=== PATIENT | male | born 1960 | race Caucasian/White ===

== ENCOUNTER 2016-10-06 01:48 | Emergency (ER) | payer BC ==
[2016-10-06 02:12] VITALS: RESP 16
[2016-10-06] MEDS ORDERED: Sodium Chloride 0.9% 1,000 ML IV ONE (02:22)
--- NOTE | 2016-10-06 02:56 | C.PDOC ---
History Of Present Illness 56 year old male presents to the ED with complaints of diffuse colicky abdominal pain and constipation for three days. Patient notes relief when drinking fluids but pain returns, and use of Advil with mild relief. He states last year he was seen in the ED for similar symptoms and was diagnosed with gastritis and is currently no longer taking medicines for gastritis. Patient denies nausea, vomiting, fever, or chills. Chief Complaint (Nursing): Abdominal Pain History Per: Patient History/Exam Limitations: no limitations Onset/Duration Of Symptoms: Days (3 days ) Current Symptoms Are (Timing): Still Present Location Of Pain/Discomfort: Diffuse Radiation Of Pain To:: None Quality Of Discomfort: "Pain" Associated Symptoms: Constipation. denies: Fever, Chills, Nausea, Vomiting, Diarrhea Recent travel outside of the [place]: No Additional History Per: Prior Records Past Medical History Reviewed: Historical Data, Nursing Documentation, Vital Signs Vital Signs: Last Vital Signs Temp 97.6 F 10/06/16 03:30 Pulse 71 10/06/16 03:30 Resp 16 10/06/16 03:30 BP 119/76 10/06/16 03:30 Pulse Ox 96 10/06/16 03:30 - Medical History PMH: Hypercholesterolemia, Hypothyroidism Family History: States: Unknown Family Hx - Social History Hx Alcohol Use: No Hx Substance Use: No - Immunization History Hx Tetanus Toxoid Vaccination: No Hx Influenza Vaccination: No Hx Pneumococcal Vaccination: No Review Of Systems Constitutional: Negative for: Fever, Chills Cardiovascular: Negative for: Chest Pain Respiratory: Negative for: Shortness of Breath Gastrointestinal: Positive for: Abdominal Pain, Constipation. Negative for: Nausea, Vomiting, Diarrhea Genitourinary: Negative for: Dysuria Musculoskeletal: Negative for: Back Pain Skin: Negative for: Rash Neurological: Negative for: Headache, Dizziness Physical Exam - Physical Exam Appears: Non-toxic, No Acute Distress Skin: Warm, Dry Head: Atraumatic, Normacephalic Eye(s): bilateral: Normal Inspection, EOMI Nose: Normal Oral Mucosa: Moist Neck: Normal ROM, Supple Chest: Symmetrical Cardiovascular: Rhythm Regular Respiratory: Normal Breath Sounds, No Rhonchi, No Wheezing Gastrointestinal/Abdominal: Bowel Sounds, Soft, Tenderness (diffuse abdominal tenderness), No Mass, No Distention, No Guarding, No Rebound, No Hernia Back: Normal Inspection, No CVA Tenderness Extremity: Bilateral: Atraumatic, No Pedal Edema, Normal ROM Neurological/Psych: Oriented x3, Normal Speech Gait: Steady ED Course And Treatment - Laboratory Results Result Diagrams: 10/06/16 02:53 10/06/16 02:53 Lab Interpretation: No Acute Changes O2 Sat by Pulse Oximetry: 100 (room air ) Pulse Ox Interpretation: Normal Medical Decision Making Medical Decision Makin y.o male with abdominal pain Labs were ordered and reviewed with no acute findings. patient was given pepcid and toradol. Xray reviewed showing fecal retention, normal gas pattern, no signs of obstruction 0319 Patient reevaluated and reports abdominal pain is improving. Discussed lab and xray findings. Patient encouraged to follow up with GI doctor for further evaluation if symptoms persist. Will discharge with RX. Disposition Counseled Patient/Family Regarding: Diagnosis, Need For Followup, Rx Given - Disposition Referrals: Gus Gautam MD [Medical Doctor] - Disposition: HOME/ ROUTINE Disposition Time: 03:25 Condition: IMPROVED Additional Instructions: Tus laboratorios tereso normales. La radiografa muestra estreimiento Es importante que aumente la ingesta de agua y fibra para ayudar con el estre imiento [place] los medicamentos segn lo prescrito para ayudar con la gastritis y el estre imiento Siga con arredondo mdico de cabecera o gastroenterlogo si los sntomas persisten Prescriptions: Docusate [Colace] 100 mg PO Q8 PRN #60 cap PRN Reason: Constipation Magnesium Citrate [Citrate of Mag] 300 ml PO ONCE PRN #1 bottle PRN Reason: Constipation Omeprazole 20 mg PO DAILY #30 ecc Instructions: Constipation (DC), High Fiber Diet (ED), Diet for Ulcers and Gastritis (ED) Forms: [employer] (Indonesian) Print Language: UGANDAN - POA Present On Arrival: None - Clinical Impression Clinical Impression: Constipation, Abdominal colic - PA / SIDE DOOR MAN / Resident Statement MD/DO has reviewed & agrees with the documentation as recorded. - Scribe Statement The provider has reviewed the documentation as recorded by the Scribe Elisa Clinton All medical record entries made by the Scribe were at my direction and personally dictated by me. I have reviewed the chart and agree that the record accurately reflects my personal performance of the history, physical exam, medical decision making, and the department course for this patient. I have also personally directed, reviewed, and agree with the discharge instructions and disposition.
[2016-10-06 03:02] LABS: BASO # 0.1 K/uL (0.0-0.2); BASO % 0.9 % (0.0-2.0); EOS # 0.1 K/uL (0.0-0.7); EOS % 0.7 % (0.0-4.0); HEMATOCRIT 42.7 % (35.0-51.0); LYMPH # 0.9 K/uL (1.0-4.3); LYMPH % 10.8 % (20.0-40.0); MEAN CELL VOLUME 86.7 fL (80.0-94.0); MEAN CORPUSCULAR HEMOGLOBIN 29.3 pg (27.0-31.0); MEAN CORPUSCULAR HGB CONC 33.8 g/dL (33.0-37.0); MEAN PLATELET VOLUME 6.8 fL (7.2-11.7); MONO # 0.6 K/uL (0.0-0.8); MONO % 7.6 % (0.0-10.0); RED CELL DISTRIBUTION WIDTH 13.2 % (11.5-14.5); WHITE BLOOD COUNT 8.2 K/uL (4.8-10.8)
[2016-10-06 03:09] LABS: CHLORIDE 100 mmol/L (98-107)
[2016-10-06 03:10] LABS: POTASSIUM 4.3 mmol/L (3.6-5.2); SODIUM 140 mmol/L (132-148)
[2016-10-06 03:13] LABS: ALB/GLOB RATIO 1.1 (1.0-2.1); ALKALINE PHOSPHATASE 82 U/L (38-126); ALT/SGPT 225 U/L (21-72); AST/SGOT 304 U/L (17-59); BILIRUBIN,TOTAL 3.2 mg/dL (0.2-1.3); BLOOD UREA NITROGEN 18 mg/dL (9-20); CARBON DIOXIDE 27 mmol/L (22-30); GFR AFRICAN-AMERICAN > 60; GLUCOSE,RANDOM 92 mg/dL (75-110); TOTAL PROTEIN 7.4 g/dL (6.3-8.3)
[2016-10-06 03:14] LABS: CALCIUM 8.9 mg/dl (8.6-10.4)
[2016-10-06 03:29] LABS: RBC URINE 7 /hpf (0-3); URINE BILIRUBIN NEGATIVE (NEGATIVE); URINE BLOOD NEGATIVE (NEGATIVE); URINE COLOR Amber (YELLOW); URINE GLUCOSE (UA) NORMAL (Normal); URINE KETONE NEGATIVE (NEGATIVE); URINE LEUKOCYTE ESTERASE NEG Leu/uL (Negative); URINE PROTEIN NEGATIVE (NEGATIVE); WBC URINE 1 /hpf (0-5)
[2016-10-06 05:14] VITALS: BP 113/74; PULSE 61; TEMP 97.7; O2SAT 98
--- NOTE | 2016-10-06 15:11 | RAD ---
PROCEDURE: Radiographs of the chest and abdomen (obstructive series) HISTORY: abd pain COMPARISON: No prior. TECHNIQUE: AP radiograph of the chest, with upright and supine radiographs of the abdomen. FINDINGS: CHEST: Lungs: Clear. Cardiovascular: Normal size heart. No pulmonary vascular congestion. Pleura: No pleural fluid. No pneumothorax. Other findings: None. ABDOMEN AND PELVIS: Bowel: Unremarkable bowel gas pattern. No evidence of mechanical obstruction. Free air: None. Bones: Degenerative changes at the lower spine. Other findings: None. IMPRESSION: Mild constipation. Otherwise unremarkable radiographs of chest and abdomen. No evidence of mechanical bowel obstruction.
== END 2016-10-06 05:18 | disposition home or self-care (01) ==
LOC: C.ER 01:48
DX: K59.00 Constipation, unspecified (principal)
CPT/HCPCS: 74022; 80053; 81001; 83690; 85025; 96361; 96374; 96375; 99284; J1885; J7040

== ENCOUNTER 2017-02-08 05:12 | Emergency (ER) | payer BC ==
--- NOTE | 2017-02-08 05:42 | C.PDOC ---
History Of Present Illness <Dez,Samuel - Last Filed: 02/08/17 06:31> <Diane Junior - Last Filed: 02/09/17 08:19> 57yo male, past medical history of gastritis, presents to ED with complaints of abdominal pain, present since 9PM last night. Patient reports associated vomiting but denies any diarrhea. States he had similar symptoms in the past and was treated here, given a diagnosis of gastritis. patient reports he was taking medications for his gastritis but currently does not take any. He denies any urinary discomfort as well. Patient denies any drug or alcohol use. No other medical complaints. (Samuel Garces) History Per: Patient History/Exam Limitations: no limitations Onset/Duration Of Symptoms: Hrs Current Symptoms Are (Timing): Still Present Location Of Pain/Discomfort: Diffuse Quality Of Discomfort: "Pain" Associated Symptoms: Vomiting. denies: Diarrhea <Dez,Samuel - Last Filed: 02/08/17 06:31> <Diane Junior - Last Filed: 02/09/17 08:19> Time Seen by Provider: 02/08/17 05:26 Chief Complaint (Nursing): Abdominal Pain Past Medical History Reviewed: Historical Data, Nursing Documentation, Vital Signs - Medical History PMH: Gastritis, Hypercholesterolemia, Hypothyroidism Denies: Chronic Kidney Disease Family History: States: Unknown Family Hx - Social History Hx Alcohol Use: No Hx Substance Use: No - Immunization History Hx Tetanus Toxoid Vaccination: No Hx Influenza Vaccination: No Hx Pneumococcal Vaccination: No <Dez,Samuel - Last Filed: 02/08/17 06:31> Vital Signs: Last Vital Signs Temp 98.6 F 02/08/17 07:35 Pulse 63 02/08/17 10:10 Resp 18 02/08/17 10:10 BP 130/75 02/08/17 10:10 Pulse Ox 98 02/08/17 10:10 Review Of Systems Except As Marked, All Systems Reviewed And Found Negative. Gastrointestinal: Positive for: Vomiting, Abdominal Pain. Negative for: Diarrhea Genitourinary: Negative for: Dysuria, Hematuria <DezSamuel - Last Filed: 02/08/17 06:31> Physical Exam - Physical Exam Appears: Non-toxic, Other (uncomfortable) Skin: Normal Color Neck: Supple Cardiovascular: Rhythm Regular Respiratory: Normal Breath Sounds Gastrointestinal/Abdominal: Soft, Tenderness (diffuse mild tenderness) Neurological/Psych: Oriented x3, Normal Speech, Normal Cognition <Samuel Garces - Last Filed: 02/08/17 06:31> ED Course And Treatment - Laboratory Results Result Diagrams: 02/08/17 06:12 O2 Sat by Pulse Oximetry: 99 (RA) Pulse Ox Interpretation: Normal <Samuel Garces - Last Filed: 02/08/17 06:31> - Laboratory Results Result Diagrams: 02/08/17 06:12 02/08/17 06:12 <Diane Junior - Last Filed: 02/09/17 08:19> Medical Decision Making <Samuel Garces - Last Filed: 02/08/17 06:31> <Diane Junior - Last Filed: 02/09/17 08:19> Medical Decision Making: Plan: -- XR Abdomen -- Amylase -- CMP -- CBC -- Pepcid 20 mg IVP -- IV Fluids Patient to be signed out to Dr. Junior pending CT Abdomen and reevaluation. ( Samuel Garces) Disposition <Samuel Garces - Last Filed: 02/08/17 06:31> Counseled Patient/Family Regarding: Studies Performed, Diagnosis, Need For Followup, Rx Given - Disposition Disposition Time: 10:10 - POA Present On Arrival: None <Diane Junior - Last Filed: 02/09/17 08:19> - Disposition Referrals: Jason Bar MD [Staff Provider] - [facility] [Outside] Disposition: HOME/ ROUTINE Condition: STABLE Prescriptions: Ondansetron [Zofran Odt] 4 mg PO Q8 PRN #15 odt PRN Reason: Nausea/Vomiting Pantoprazole [Protonix EC Tab] 20 mg PO DAILY #30 ect Instructions: Epigastric Pain (ED) Forms: [facility] ([place]er) Print Language: SAMI - Clinical Impression Clinical Impression: Nausea, Vomiting, Epigastric abdominal pain, Enlarged prostate - Scribe Statement The provider has reviewed the documentation as recorded by the Scribe <Samuel Garces - Last Filed: 02/08/17 06:31> <Diane Junior - Last Filed: 02/09/17 08:19> - Scribe Statement Andria Bunn (Samuel Garces) Provider Attestation: All medical record entries made by the Scribe were at my direction and personally dictated by me. I have reviewed the chart and agree that the record accurately reflects my personal performance of the history, physical exam, medical decision making, and the department course for this patient. I have also personally directed, reviewed, and agree with the discharge instructions and disposition. (Samuel Garces) Addendum <Samuel Garces - Last Filed: 02/08/17 06:31> <Diane Junior - Last Filed: 02/09/17 08:19> Addendum: 02/08/17 07:27 Patient currently moaning in pain, states pain began at approx 8-9pm last night , associated with nausea and vomiting. On exam, abdomen is diffusely tender greatest in epigastric area. IV morphine, IV zofran ordered. Patient pending CT scan. 02/08/17 09:58 Accession No. : [id number] Patient Name / ID : CATY WEBER / [id number] Exam Date : 02/08/2017 09:07:02 ( Approved ) Study Comment : Sex / Age : M / 57Y Creator : Fransico Painter MD Dictator : Fransico Painter MD Basket Maker : Heel Builder : Fransico Painter MD Approver2 : Report Date : 02/08/2017 09:45:30 My Comment : CT abdomen and pelvis History: Abdominal pain. Comparison: CT abdomen and pelvis dated 01/26/2015 Technique: Multiple contiguous axial images were performed through the abdomen and pelvis with the use of intravenous contrast. Subsequently, sagittal and coronal reformatted images were obtained. This CT exam was performed using one or more of the following dose reduction techniques: Automated exposure control, adjustment of the mA and/or kV according to patient size, and/or use of iterative reconstruction technique. Findings: Scattered atelectasis and consolidation at the lung bases. No pleural or pericardial effusion. Mild intrahepatic biliary ductal dilatation. Distended gallbladder. Diminutive spleen. Splenule. Adrenal glands are preserved. Mild heterogeneity of the pancreas, nonspecific. Upper abdominal bowel is grossly preserved. Right kidney: No calculi or hydronephrosis. Left Kidney: No calculi or hydronephrosis. Mild nonspecific thickening of the urinary bladder. Heterogeneous and somewhat prominent prostate. Clinical correlation. Mild underdistention and or mild thickening of the sigmoid colon and rectum. Clinical correlation. Mild fecal retention in the colon. Fecalization of the distal small bowel/ terminal ileum. Appendix is not well delineated on this study. Few shotty para-aortic lymph nodes. Few shotty mesenteric lymph nodes. Degenerative changes in the spine. Multilevel posterior disc osteophyte complexes throughout the lumbar spine. Minimal retrolisthesis of L5 on S1. Impression: Point 1. Mild underdistention and or mild thickening of the sigmoid colon and rectum. Clinical correlation. Mild fecal retention in the colon. Fecalization of the distal small bowel/terminal ileum. Appendix is not well delineated on this study. 2. Mild nonspecific thickening of the urinary bladder. 3. Heterogeneous and somewhat prominent prostate. Clinical correlation. 4. Degenerative changes in the spine. Multilevel posterior disc osteophyte complexes throughout the lumbar spine. Minimal retrolisthesis of L5 on S1. Additional findings as above. 02/08/17 10:04 On reassessment, patient is resting comfortably and states he feels better. On exam, abdomen is soft and nontender. CT scan findings are nonspecific, made given copy and made aware of them. Suspect gastritis/PUD for pain, patient states he does not take PPI. Will given Rx for protonix and zofran ODT. He was instructed to follow up with PMD/clinic in 1-2 days, and with GI within 1 week. He was instructed to drink plenty of clear fluids and advance to bland diet slowly. He understands he should return to ED if symptoms worsen. (Diane Junior)
[2017-02-08] MEDS ORDERED: Sodium Chloride 0.9% 1,000 ML IV STA (05:43)
[2017-02-08 05:53] VITALS: RESP 18
[2017-02-08] MEDS ORDERED: Sodium Chloride 0.9% 1,000 ML ONE ×2 (06:11→08:38)
[2017-02-08 06:15] LABS: BASO % 0.2 % (0.0-2.0); HEMATOCRIT 44.2 % (35.0-51.0); LYMPH # 0.7 K/uL (1.0-4.3); LYMPH % 5.6 % (20.0-40.0); MEAN CORPUSCULAR HEMOGLOBIN 29.4 pg (27.0-31.0); MEAN CORPUSCULAR HGB CONC 33.8 g/dL (33.0-37.0); MEAN PLATELET VOLUME 6.7 fL (7.2-11.7); MONO # 0.4 K/uL (0.0-0.8); MONO % 2.9 % (0.0-10.0); PLATELET COUNT 333 K/uL (130-400); WHITE BLOOD COUNT 12.9 K/uL (4.8-10.8)
[2017-02-08 06:34] LABS: ALB/GLOB RATIO 1.4 (1.0-2.1); ALKALINE PHOSPHATASE 71 U/L (38-126); ALT/SGPT 39 U/L (21-72); AMYLASE 184 U/L (30-110); AST/SGOT 25 U/L (17-59); BILIRUBIN,TOTAL 1.7 mg/dL (0.2-1.3); BLOOD UREA NITROGEN 21 mg/dL (9-20); CALCIUM 9.1 mg/dl (8.6-10.4); CARBON DIOXIDE 29 mmol/L (22-30); CHLORIDE 101 mmol/L (98-107); GFR AFRICAN-AMERICAN > 60; GLUCOSE,RANDOM 118 mg/dL (75-110); POTASSIUM 3.8 mmol/L (3.6-5.2); SODIUM 139 mmol/L (132-148); TOTAL PROTEIN 7.5 g/dL (6.3-8.3)
[2017-02-08] MEDS ORDERED: Iohexol 240 (50 ml) ONE (07:26)
[2017-02-08] MEDS ORDERED: Iohexol 240 (50 ml) PO ONE (07:30)
[2017-02-08] MEDS ORDERED: Morphine 4 MG/ML VIAL ONE (07:32)
[2017-02-08 07:39] VITALS: TEMP 98.6
--- NOTE | 2017-02-08 07:42 | RAD ---
Abdomen two views History: Abdominal pain. Comparison: None available. Findings: Moderate to severe fecal retention in the colon. Degenerative changes in the spine with a scoliotic curvature of the mid to lower lumbar spine. Few mildly distended loops of small bowel in the upper abdomen. Impression: Moderate fecal retention in the colon. Few mildly distended loops of small bowel seen within the left upper abdomen.
[2017-02-08 08:23] LABS: NEUTROPHIL 89 % (50-75); TOTAL CELLS COUNTED 100
[2017-02-08] MEDS ORDERED: Sodium Chloride 0.9% 1,000 ML IV ONE (08:26)
[2017-02-08] MEDS ORDERED: Iodixanol 320 MG/ML 100 ML BOTTLE IV ONE (08:56)
--- NOTE | 2017-02-08 09:46 | CT ---
CT abdomen and pelvis History: Abdominal pain. Comparison: CT abdomen and pelvis dated 01/26/2015 Technique: Multiple contiguous axial images were performed through the abdomen and pelvis with the use of intravenous contrast. Subsequently, sagittal and coronal reformatted images were obtained. This CT exam was performed using one or more of the following dose reduction techniques: Automated exposure control, adjustment of the mA and/or kV according to patient size, and/or use of iterative reconstruction technique. Findings: Scattered atelectasis and consolidation at the lung bases. No pleural or pericardial effusion. Mild intrahepatic biliary ductal dilatation. Distended gallbladder. Diminutive spleen. Splenule. Adrenal glands are preserved. Mild heterogeneity of the pancreas, nonspecific. Upper abdominal bowel is grossly preserved. Right kidney: No calculi or hydronephrosis. Left Kidney: No calculi or hydronephrosis. Mild nonspecific thickening of the urinary bladder. Heterogeneous and somewhat prominent prostate. Clinical correlation. Mild underdistention and or mild thickening of the sigmoid colon and rectum. Clinical correlation. Mild fecal retention in the colon. Fecalization of the distal small bowel/terminal ileum. Appendix is not well delineated on this study. Few shotty para-aortic lymph nodes. Few shotty mesenteric lymph nodes. Degenerative changes in the spine. Multilevel posterior disc osteophyte complexes throughout the lumbar spine. Minimal retrolisthesis of L5 on S1. Impression: Point 1. Mild underdistention and or mild thickening of the sigmoid colon and rectum. Clinical correlation. Mild fecal retention in the colon. Fecalization of the distal small bowel/terminal ileum. Appendix is not well delineated on this study. 2. Mild nonspecific thickening of the urinary bladder. 3. Heterogeneous and somewhat prominent prostate. Clinical correlation. 4. Degenerative changes in the spine. Multilevel posterior disc osteophyte complexes throughout the lumbar spine. Minimal retrolisthesis of L5 on S1. Additional findings as above.
[2017-02-08 10:11] VITALS: BP 130/75; PULSE 63; O2SAT 98
== END 2017-02-08 10:20 | disposition home or self-care (01) ==
LOC: C.ER 05:12
DX: N40.0 Benign prostatic hyperplasia without lower urinary tract symptoms (principal); R10.13 Epigastric pain; R11.2 Nausea with vomiting, unspecified; E78.00 Pure hypercholesterolemia, unspecified; E03.9 Hypothyroidism, unspecified
CPT/HCPCS: 74000; 74177; 80053; 82150; 83690; 85025; 96361; 96374; 96375; 99285; J2270; J2405; J7040; Q9966; Q9967